=== PATIENT | female | born 1955 | race Caucasian/White ===

== ENCOUNTER 2017-01-21 08:51 | Day surgery (SDC) | payer BC ==
[~2017-01-21] VITALS: Ht 162.6 cm; Wt 125.9 kg
[~2017-01-21 08:51] MED LIST: ADVAIR IH; CELEBREX200 MG PO; DUONEB DPS3 ML IH; HYDROCODONE 5MG/5 MG PO; IMITREX DPS50 MG PO; LORTAB 7.5-3251 EACH PO; LYRICA150 MG PO; NEXIUM40 MG PO; REQUIP5 MG PO; RESTORIL15 MG PO; SYNTHROID100 MCG PO; TYLENOL325 MG PO; VENTOLIN IH; ZYRTEC10 M3 PO; [UNRECOGNIZED DRUG - OTHER] PO
--- NOTE | 2017-01-22 08:52 | OR ---
ADMIT: 01/21/2017 RM/LOC: [facility] MR#: [id number] [address] [id number] LEONIDAS CASTILLO [address] [place] [address] Operative/Delivery Room Report SEX: F AGE: 61 : 1955 SURGERY DATE: 01/21/2017 SURGEON: Cindy Flower MD POSTAL SUPERINTENDENT: None. PREPROCEDURE DIAGNOSES: 1. Lumbar disk degeneration. 2. Lumbosacral neuritis. POSTPROCEDURE DIAGNOSES: 1. Lumbar disk degeneration. 2. Lumbosacral neuritis. PROCEDURE PERFORMED: L5-S1 interlaminar epidural steroid injection. INDICATIONS FOR PROCEDURE: The patient is pleasant female with history of chronic low back pain secondary to above mentioned diagnoses, comes here for planned lumbar epidural steroid injection. ANESTHESIA: Local without sedation. ESTIMATED BLOOD LOSS: Zero. COMPLICATIONS: None immediately evident. DESCRIPTION OF PROCEDURE: After the patient was seen in the preoperative area, vitals signs were taken. Prior to the procedure, the risks, benefits, and alternative therapies were discussed at length. Patient consent was obtained and updated. The patient was taken to the fluoroscopy suite and placed on the fluoroscopy table in the prone position. Pressure points were padded to comfort, monitors applied, and a timeout performed. Fluoroscopy was brought in. The patient was sterilely prepped and draped in the usual manner with ChloraPrep solution, and 1% lidocaine was used to anesthetize the appropriate needle entry site. Utilizing a midline approach, continuous loss of resistance technique with preservative-free normal saline ADMIT: 01/21/2017 RM/LOC: [facility] MR#: [id number] [id number] [address] LEONIDAS CASTILLO Jenna [address] [place] [address] Operative/Delivery Room Report SEX: F AGE: 61 : 1955 and intermittent fluoroscopic guidance, the posterior epidural space was easily entered. Once the epidural space had been entered through L5-S1 the patient was injected with 2 mL of Isovue-300 and outlining of the posterior epidural space was observed with no evidence of vascular uptake and intrathecal migration. Next, a solution consisting of 10 mL of preservative- free normal saline and 80 mg of Depo-Medrol was injected. The needle was withdrawn. The patient was escorted back to the preoperative area and observed for a period of time. PLAN: Discharge instructions were given, followup scheduled. The patient was discharged home with a driver starting gate. Cindy Flower MD/ nader JOB #: [id number] CC: Cindy Flower, Attending Physician Coreen Palafox, Family Physician
--- NOTE | 2017-01-22 08:52 | OR ---
ADMIT: 01/21/2017 RM/LOC: [facility] MR#: [id number] [address] [place] [id number] [place] [address] Operative/Delivery Room Report SEX: F AGE: 61 : 1955 SURGERY DATE: 01/21/2017 SURGEON: Cindy Flower MD HAND SHOES SEWER: None. PREOPERATIVE DIAGNOSES: 1. Bilateral knee arthritis. 2. Bilateral knee pain. POSTOPERATIVE DIAGNOSES: 1. Bilateral knee arthritis. 2. Bilateral knee pain. NAME OF PROCEDURE: Bilateral knee joint injection with Synvisc-One. INDICATION FOR PROCEDURE: The patient is pleasant female with history of chronic knee pain secondary to arthritis, comes here for planned bilateral knee joint injection with Synvisc-One. ANESTHESIA: Local without sedation. ESTIMATED BLOOD LOSS: Zero. COMPLICATIONS: None immediately evident. DESCRIPTION OF THE PROCEDURE: After the patient was seen in the preoperative area, vitals signs were taken. Prior to the procedure, the risks, benefits, and alternative therapies were discussed at length. Patient consent was obtained and updated. The patient was taken to the fluoroscopy suite and placed on the fluoroscopy table in a supine position. Pressure points were padded to comfort, monitors applied, and a timeout performed. C-arm was brought in to identify the right knee joint. Lidocaine plain 1%, approximately 1 mL was used to anesthetize the skin and underlying subcutaneous tissue. A 3.5-inch 22-gauge curved-tip spinal needle was advanced through the anesthetized skin and placed into the right knee joint ADMIT: 01/21/2017 RM/LOC: [facility] MR#: [id number] [address] [place] [id number] CRYSTAL LEONIDAS [facility] [address] [place] [address] Operative/Delivery Room Report SEX: F AGE: 61 : 1955 space. Isovue-300 was injected into joint and showed good spread into the knee joint. After the correct placement was confirmed, a 6 mL solution consisting of Synvisc-One was injected. Then we moved on to the left side and repeated the same procedure. The patient tolerated the procedure well without any complications. The patient was then brought to the PACU where the patient recovered nicely. PLAN: The patient was examined 20 minutes after the conclusion of the procedure and had 80% reduction of pain. Discharge instructions were given and followup scheduled. The patient was discharged home with a food service driver. Cindy Flower MD/ nader JOB #: [id number] CC: Cindy Flower, Attending Physician Coreen Palafox, Family Physician
== END 2017-01-21 10:54 | disposition home or self-care (01) ==
LOC: SSS 08:51
PROC: 3E0U33Z Introduction of Anti-inflammatory into Joints, Percutaneous Approach (ICD-10-PCS; principal; 2017-01-21)
PROC: 3E0U3BZ Introduction of Anesthetic Agent into Joints, Percutaneous Approach (ICD-10-PCS; principal; 2017-01-21)
PROC: B01BYZZ Fluoroscopy of Spinal Cord using Other Contrast (ICD-10-PCS; principal; 2017-01-21)
PROC: 3E0S33Z Introduction of Anti-inflammatory into Epidural Space, Percutaneous Approach (ICD-10-PCS; principal; 2017-01-21)
PROC: 3E0S3BZ Introduction of Anesthetic Agent into Epidural Space, Percutaneous Approach (ICD-10-PCS; principal; 2017-01-21)
DX: G89.29 Other chronic pain (principal); M51.17 Intervertebral disc disorders with radiculopathy, lumbosacral region; J20.9 Acute bronchitis, unspecified; J01.00 Acute maxillary sinusitis, unspecified; J45.909 Unspecified asthma, uncomplicated; E03.9 Hypothyroidism, unspecified; G47.33 Obstructive sleep apnea (adult) (pediatric); G62.9 Polyneuropathy, unspecified; G25.81 Restless legs syndrome; E53.8 Deficiency of other specified B group vitamins; Z88.0 Allergy status to penicillin; Z88.8 Allergy status to other drugs, medicaments and biological substances; Z79.891 Long term (current) use of opiate analgesic; Z79.899 Other long term (current) drug therapy; Z90.710 Acquired absence of both cervix and uterus; Z90.49 Acquired absence of other specified parts of digestive tract